=== PATIENT | female | born 1985 | race African-American/Black ===

== ENCOUNTER 2017-08-27 14:35 | Emergency (ER) | payer OTHER ==
[2017-08-27 15:39] LABS: Barbiturates NEGATIVE; Benzodiazepines NEGATIVE; Cocaine NEGATIVE; METHAMPHETAM NEGATIVE; Opiates NEGATIVE; Phencyclidine NEGATIVE; THC Cannibis NEGATIVE
[2017-08-27 15:40] LABS: Absolute Monocytes 0.8 K/uL (0.1-1.3); Absolute Neutrophil 4.4 K/uL (1.8-8.0); Basophils % 1.2 % (0-1.3); Eosinophils % 1.8 % (0-4.4); Hematocrit 36.1 % (36.0-45.0); Lymphocytes % 26.9 % (15.3-44.8); MCH 21.8 pg (27.0-35.0); MCV 68.5 fL (80-100); MPV 7.1 fL (7.6-11.3); Monocytes % 10.5 % (3.3-12.3); RBC Red Blood Cell Count 5.27 M/uL (3.86-4.86)
[2017-08-27 15:41] LABS: Bicarbonate 27 mEq/L (21-31); Glucose Level 80 mg/dL (65-120); Sodium Level 138 mEq/L (135-145)
[2017-08-27 15:43] LABS: Protime INR 1.03
[2017-08-27 15:46] LABS: ALT/SGPT 12 IU/L (10-60); AST/SGOT 14 IU/L (10-42); Albumin 4.4 g/dL (3.2-5.5); Alkaline Phosphatase 58 IU/L (42-121); BUN Blood Urea Nitrogen 14 mg/dL (6-20); Bilirubin Direct 0.1 mg/dL (0-0.2); Bilirubin Total 0.5 mg/dL (0.3-1.2); Protein, Total 7.8 g/dL (6.0-8.3)
[2017-08-27 15:48] LABS: Alcohol Serum/Plasma < 10 mg/dl; Salicylates Level < 4.0 mg/dl (<30)
[2017-08-27] MEDS ORDERED: ACETAMINOPHEN 500 MG TAB ONE (15:57)
--- NOTE | 2017-08-27 16:02 | ER ---
Nurse's Notes [facility] Name: Ruma Amin Age: 32 yrs Sex: Female : 1985 Arrival Date: 08/27/2017 Time: 14:42 Bed 6 Private MD: Diagnosis: Schizophrenia, unspecified Presentation: 08/27 14:49 Presenting complaint: Patient states: She has acceptance as [facility] in [facility], was instructed to come to ED to get clearance. Uses PCP, last time was >1 week ago. Denies SI/HI. Transition of care: patient was not received from another setting of care. Onset of symptoms was August 27, 2017. Care prior to arrival: None. 14:49 Method Of Arrival: Ambulatory hb 14:49 Acuity: BALDO 2 hb Historical: - Allergies: 14:54 Haldol; hb 14:54 Cipro; hb - Home Meds: 14:54 hydroxyzine HCl 50 mg Oral tab 1 tab three times a day [Active]; hb - PMHx: 14:54 MS; Migraines; hb 15:01 Anxiety; ss - Immunization history:: Adult Immunizations up to date. - Social history:: Smoking status: Patient uses tobacco products, smokes one-half pack cigarettes per day, Patient uses cousin reports patient uses PCP. Screenin:42 Abuse screen: Denies threats or abuse. Nutritional screening: No deficits noted. la1 Tuberculosis screening: No symptoms or risk factors identified. Fall Risk None identified. Assessment: 15:28 General: Appears well developed, well nourished, Behavior is agitated, anxious. Pain: la1 Denies pain. Neuro: Level of Consciousness is awake, alert, obeys commands, Oriented to person, place, time, situation. Cardiovascular: Capillary refill < 3 seconds Patient's skin is warm and dry. Respiratory: Airway is patent Respiratory effort is even, unlabored, Respiratory pattern is regular, symmetrical, Breath sounds are clear bilaterally. GI: No signs and/or symptoms were reported involving the gastrointestinal system. : No signs and/or symptoms were reported regarding the genitourinary system. Psych: 15:40 Subjective: Patient's mood is elevated, angry, Delusions are denied, Hallucinations are la1 visual, Having thoughts of pt denies thoughts of hurting herself r others. Objective: Patient is defensive, Speech is normal, Affect is appropriate. Interventions: Removed personal items and placed in bag. Patient placed in hospital gown. Suicide Risk Assessment: Sad Person Scale: Sex of patient: Female: Score 0 points. Age of patient: Score 1 point if patient 15-34. Depression: Score 1 point if signs of depression are present. Previous Attempt: Score 1 point if patient has previously attempted suicide. Substance Abuse: Score 1 point if patient abuses alcohol or drugs. Rational Thinking: Score 0 point if patient has rational thinking. Social Support: Score 0 if social support is present/available. Organized Plan: Score 0 if patient did not have an organized plan in place. Relationship: Score 0 point if patient has a spouse or domestic partner. Chronic Sickness: Score 0 point if patient does not have a chronic illness, debilitating, or severe disorder. TOTAL POINTS: If total points are 3-4, proposed clinical action is close follow-up/consider hospitalization. Safety Checks: Personal items have been removed. Door is open. Visitors are present. Patient uses sythetic. Commitment: Patient will be a voluntary commitment. Vital Signs: 14:49 BP 135 / 79; Pulse 84; Resp 16; Temp 98.7; Pulse Ox 100% on R/A; Pain 0/10; hb ED Course: 14:42 Patient arrived in ED. rg4 14:53 Triage completed. hb 14:54 Arm band placed on right wrist. hb 14:56 Diego Rma MD is Attending Physician. kdr 15:23 Epifanio Nolen, RN is Primary Nurse. la1 15:28 EKG done, by document management technician. reviewed by Diego Ram MD. at1 16:31 Patient has correct armband on for positive identification. Allergy band placed. Fall la1 risk band placed. 16:31 No provider procedures requiring assistance completed. Patient did not have IV access ss during this emergency room visit. Administered Medications: 15:41 Drug: Tylenol 1000 mg Route: PO; ss 16:31 Follow up: Response: No adverse reaction; Pain is decreased ss Outcome: 16:01 Discharge ordered by . kdr 16:31 Patient left the ED. la1 16:31 Discharged to home ambulatory, with family. ss 16:31 Condition: good 16:31 Discharge instructions given to patient, family, Instructed on discharge instructions, follow up and referral plans. Demonstrated understanding of instructions, follow-up care. Signatures: Diego Ram MD MD [facility] Sherita Alfaro RN RN ss Marina siu, slasher tender helper EKG Tat1 Epifanio Nolen RN RN la1 Suzanne Man RN RN Arleen Srivastava rg4 Corrections: (The following items were deleted from the chart) 14:55 14:49 Presenting complaint: Patient states: She has acceptance as [facility], was hb was instructed to come to ED to get clearance. Uses PCP. 15:00 14:49 Presenting complaint: Patient states: She has acceptance as [facility] in [facility], was instructed to come to ED to get clearance. Uses PCP.
--- NOTE | 2017-08-27 16:02 | EDPHYS ---
Physician Documentation [facility] Name: Ruma Amin Age: 32 yrs Sex: Female : 1985 Arrival Date: 08/27/2017 Time: 14:42 Bed 6 Private MD: ED Physician Diego Ram HPI: 08/27 18:27 This 32 yrs old Black Female presents to ER via Ambulatory with complaints of Psych kdr Problem. 18:27 The patient presents to the emergency department with anxiety, over unknown kdr circumstances, psychosis, has experienced visual hallucinations. Onset: The symptoms/episode began/occurred at an unknown time. Past psychiatric history: Prior diagnosis: schizophrenia, Psychiatric medications include: Primary psychiatric physician: the patient does not have a primary psychiatric physician. Associated signs and symptoms: The patient has no apparent associated signs or symptoms. Severity of symptoms: At their worst the symptoms were very mild mild. The patient has experienced similar episodes in the past, chronically. The patient has not recently seen a physician. The patient states that she was told to come to the ED to get evaluated and transferred to a psych facility. She is current not SI/HI. Historical: - Allergies: 14:54 Haldol; hb 14:54 Cipro; hb - Home Meds: 14:54 hydroxyzine HCl 50 mg Oral tab 1 tab three times a day [Active]; hb - PMHx: 14:54 MS; Migraines; hb 15:01 Anxiety; ss - Immunization history:: Adult Immunizations up to date. - Social history:: Smoking status: Patient uses tobacco products, smokes one-half pack cigarettes per day, Patient uses cousin reports patient uses PCP. ROS: 18:27 Constitutional: Negative for fever, chills, and weight loss, Eyes: Negative for injury, kdr pain, redness, and discharge, ENT: Negative for injury, pain, and discharge, Neck: Negative for injury, pain, and swelling, Cardiovascular: Negative for chest pain, palpitations, and edema, Respiratory: Negative for shortness of breath, cough, wheezing, and pleuritic chest pain, Abdomen/GI: Negative for abdominal pain, nausea, vomiting, diarrhea, and constipation, Back: Negative for injury and pain, : Negative for injury, bleeding, discharge, and swelling, MS/Extremity: Negative for injury and deformity, Skin: Negative for injury, rash, and discoloration, Neuro: Negative for headache, weakness, numbness, tingling, and seizure activity. Allergy/Immunology: Negative for hives, rash, and allergies, Endocrine: Negative for neck swelling, polydipsia, polyuria, polyphagia, and marked weight changes, Hematologic/Lymphatic: Negative for swollen nodes, abnormal bleeding, and unusual bruising. 18:27 Psych: Positive for anxiety, visual hallucinations, insomnia, Negative for drug dependence, alcohol dependence, auditory hallucinations, homicidal ideation, suicide gesture, suicidal ideation, acute changes. Exam: 18:27 Constitutional: This is a well developed, well nourished patient who is awake, alert, kdr and in no acute distress. Head/Face: Normocephalic, atraumatic. Eyes: Pupils equal round and reactive to light, extra-ocular motions intact. Lids and lashes normal. Conjunctiva and sclera are non-icteric and not injected. Cornea within normal limits. Periorbital areas with no swelling, redness, or edema. Neck: Trachea midline, no thyromegaly or masses palpated, and no cervical lymphadenopathy. Supple, full range of motion without nuchal rigidity, or vertebral point tenderness. No Meningismus. Chest/axilla: Normal chest wall appearance and motion. Nontender with no deformity. No lesions are appreciated. Cardiovascular: Regular rate and rhythm with a normal S1 and S2. No gallops, murmurs, or rubs. Normal PMI, no JVD. No pulse deficits. Respiratory: Lungs have equal breath sounds bilaterally, clear to auscultation and percussion. No rales, rhonchi or wheezes noted. No increased work of breathing, no retractions or nasal flaring. Abdomen/GI: Soft, non-tender, with normal bowel sounds. No distension or tympany. No guarding or rebound. No evidence of tenderness throughout. Back: No spinal tenderness. No costovertebral tenderness. Full range of motion. Skin: Warm, dry with normal turgor. Normal color with no rashes, no lesions, and no evidence of cellulitis. MS/ Extremity: Pulses equal, no cyanosis. Neurovascular intact. Full, normal range of motion. Neuro: Awake and alert, GCS 15, oriented to person, place, time, and situation. Cranial nerves II-XII grossly intact. Motor strength 5/5 in all extremities. Sensory grossly intact. Cerebellar exam normal. Normal gait. 18:27 Psych: Behavior/mood is pleasant, cooperative, Occasional fits but otherwise he was not making any threats to himself or others. Vital Signs: 14:49 BP 135 / 79; Pulse 84; Resp 16; Temp 98.7; Pulse Ox 100% on R/A; Pain 0/10; hb MDM: 16:01 Patient medically screened. [facility] 18:27 Data reviewed: vital signs, nurses notes, lab test result(s). [facility] 08/27 14:58 Order name: Acetaminophen [facility] 08/27 14:58 Order name: Basic Metabolic Panel kdr 08/27 14:58 Order name: CBC with Diff [facility] 08/27 14:58 Order name: ETOH Level [facility] 08/27 14:58 Order name: Hepatic Function [facility] 08/27 14:58 Order name: PT-INR [facility] 08/27 14:58 Order name: Ptt, Activated [facility] 08/27 14:58 Order name: Salicylate [facility] 08/27 14:58 Order name: Urine Drug Screen; Complete Time: 15:59 kdr 08/27 14:59 Order name: Acetaminophen Level; Complete Time: 15:59 EDMS 08/27 14:59 Order name: Basic Metabolic Panel; Complete Time: 15:59 EDMS 08/27 14:59 Order name: CBC with Automated Diff EDMS 08/27 14:59 Order name: Alcohol Serum/Plasma; Complete Time: 15:59 EDMS 08/27 14:59 Order name: Liver (Hepatic) Function; Complete Time: 15:59 EDMS 08/27 14:58 Order name: EKG; Complete Time: 14:59 kdr 08/27 14:58 Order name: EKG - Nurse/Tech; Complete Time: 15:23 kdr 08/27 14:58 Order name: IV Saline Lock; Complete Time: 15:23 kdr 08/27 14:58 Order name: Labs collected and sent; Complete Time: 15:23 kdr 08/27 14:58 Order name: Urine Dipstick-Ancillary (obtain specimen); Complete Time: 15:24 kdr 08/27 14:59 Order name: Protime (+INR); Complete Time: 15:59 EDMS 08/27 14:59 Order name: PTT, Activated Partial Thromb; Complete Time: 15:59 EDMS 08/27 14:59 Order name: Salicylates Level; Complete Time: 15:59 EDMS 08/27 15:58 Order name: Diet Regular; Complete Time: 15:58 ss 08/27 16:09 Order name: Urine Dipstick--Ancillary (enter results) ag 08/27 16:09 Order name: Urine --Ancillary (enter results) ag 08/27 16:09 Order name: Urine Dipstick-Ancillary EDMS 08/27 16:10 Order name: Urine --Ancillary EDMS Administered Medications: 15:41 Drug: Tylenol 1000 mg Route: PO; ss 16:31 Follow up: Response: No adverse reaction; Pain is decreased ss Disposition: 08/27/17 16:01 Discharged to Home. Impression: Schizophrenia, unspecified. - Condition is Stable. - Discharge Instructions: Altered Mental Status. - Medication Reconciliation Form, Thank You Letter form. - Follow up: Private Physician; When: 2 - 3 days; Reason: If symptoms return, Further diagnostic work-up, Recheck today's complaints, Continuance of care, Re-evaluation by your physician. - Problem is an ongoing problem. - Symptoms are unchanged. Signatures: Dispatcher [employer] EDIA Diego Ram MD MD [facility] Sherita Alfaro RN RN ss Epifanio Nolen RN RN la1 Suzanne Man RN RN
[2017-08-27 16:13] LABS: Urine Blood NEGATIVE (NEG); Urine Glucose NEGATIVE (NEG); Urine Protein NEGATIVE (NEG); Urine Specific Gravity 1.025 (1.005-1.030); Urine pH 5.5 (5.0-7.0)
[2017-08-27 18:03] LABS: Anisocytosis 1+; Blood Morphology Comment NOTED (NOT SEEN); Hypochromasia 1+; Platelet Estimate ADEQ; Urine White Blood Cell Casts OK
--- NOTE | 2017-08-29 12:53 | EKG ---
Test Date: 2017-08-27 Test Time: 15:21:45 Spiritual Care Coordinator: SOLIS MEASUREMENT RESULTS: Intervals: Rate: 80 PA: 152 QRSD: 90 QT: 364 QTc: 419 Anchor: P: 59 PA: 152 QRS: 75 T: 48 INTERPRETIVE STATEMENTS: Normal sinus rhythm Minimal voltage criteria for LVH, may be normal variant Borderline ECG No previous ECG available for comparison Electronically Signed On 08-29-17 12:52:11 CDT by Dimitri Miranda
== END 2017-08-27 16:31 | disposition home or self-care (01) ==
LOC: ER 14:35
DX: F20.9 Schizophrenia, unspecified (principal); F17.210 Nicotine dependence, cigarettes, uncomplicated; Z88.1 Allergy status to other antibiotic agents; Z88.5 Allergy status to narcotic agent
CPT/HCPCS: 36415; 80048; 80076; 80307; 80320; 80329; 81003; 81025; 85025; 85610; 85730; 93005; 99284

== ENCOUNTER 2019-12-26 20:03 | Emergency (ER) | payer OTHER ==
--- OUTSIDE RECORDS SUMMARY | 2019-12-26 20:05 | XMS REPORT | Continuity of Care Document ---
:1985 Author Organization [facility] t Address [address] [place] [address] Care Team Providers Name Role Phone Fredy Marques Attending Clinician Clinic, Neurology Continuity Attending Clinician UnavailAnthony Gutierrez MD Attending Clinician Doctor Unassigned, Name Attending Clinician Unavailable Problems This patient has no known problems. Allergies, Adverse Reactions, Alerts This patient has no known allergies or adverse reactions. Medications This patient has no known medications. Procedures This patient has no known procedures. Encounters Start End Encounter Admission Attending Care Care Encounter Source Date/Time Date/Time Type Type Clinicians Facility Department ID 2019-11-14 2019-11-14 ISIDRO Watts [id number] 00:00:00 00:00:00 (Out) Aldo OKEEFE [id number] [facility] [id number] 2019-09-13 2019-09-13 Letter [facility]ly [facility] [id number] 00:00:00 00:00:00 (Out) Neurology [facility] [id number] [facility] [id number] 2019-08-31 2019-08-31 Telephone BRI Roberts [id number] 00:00:00 00:00:00 Lauren Maguire [id number] [place] [id number] [place] [id number] [address] 2019-08-31 2019-08-31 Orders Doctor ISIDRO [id number] 00:00:00 00:00:00 Only Unassigned, SARY [id number] [place] [facility] [id number] 2019-08-01 2019-08-01 Orders Doctor ISIDRO [id number] 00:00:00 00:00:00 Only Unassigned, SARY [id number] Gardi [facility] [id number] 2019-02-10 2019-02-10 Telephone Latanya Roberts [id number] 00:00:00 00:00:00 Lauren Vasquez [id number] [place] [id number] Results This patient has no known results.
--- OUTSIDE RECORDS SUMMARY | 2019-12-26 20:05 | XMS REPORT | Summary of Care ---
:1985 Author Organization [facility] Address [address] [place] [id number] Care Team Providers Name Role Phone Anthony Roberts MD Primary Care Provider Encounter Details Date Type Department Care Team Description 11/14/2019 Letter (Out) [facility] Aldo Marques [address] [place], [place] [address] [place] [address] [place] [id number] Allergies Active Allergy Reactions Severity Noted Date Comments Ciprofloxacin Itching 08/23/2017 documented as of this encounter (statuses as of 11/14/2019) Medications No known medicationsdocumented as of this encounter (statuses as of 11/14/2019) Active Problems Problem Noted Date NSTEMI (non-ST elevated myocardial infarction) 019 Severe episode of recurrent major depressive disorder, without psychotic 03/08/2018 features Anxiety Schizoaffective disorder, depressive type Migraines documented as of this encounter (statuses as of 11/14/2019) Social History Tobacco Use Types Packs/Day Years Used Date Former Smoker Cigarettes 1 15 Started: 12/23 Smokeless Tobacco: Never Used Alcohol Use Drinks/Week oz/Week Comments Yes 1 drink a week Sex Assigned at Date Recorded Not on file Job Start Date Occupation Industry Not on file Not on file Not on file Travel History Travel Start Travel End No recent travel history available. documented as of this encounter Last Filed Vital Signs Not on filedocumented in this encounter Plan of Treatment Date Type Specialty Care Team Description 11/27/2019 Office Visit Neurology Giovanni Snell MD [address] [place] [id number] Health Maintenance Due Date Last Done Comments VARICELLA VACCINES (1 of 2 - 1986 2-dose childhood series) DTaP,Tdap,and Td Vaccines (1 - 1996 Tdap) Depression Screening 1997 PAP SMEAR 2006 INFLUENZA VACCINE (Season Ended) 2020 PNEUMOCOCCAL 0-64 YEARS COMBINED Aged Out No longer eligible based on SERIES patient's age to complete this topic documented as of this encounter Results Not on filedocumented in this encounter
[2019-12-26 20:56] LABS: Basophils % 1.1 % (0-1.3); Hematocrit 35.1 % (36.0-45.0); Lymphocytes % 37.2 % (15.3-44.8); MPV 7.7 fL (7.6-11.3)
[2019-12-26 21:11] LABS: Protime INR 0.96
[2019-12-26 21:18] LABS: Urine Blood NEGATIVE (NEG); Urine Glucose NEGATIVE (NEG); Urine Protein NEGATIVE (NEG); Urine pH 5.5 (5.0-7.0)
[2019-12-26 21:51] LABS: Barbiturates NEGATIVE (NEGATIVE); Benzodiazepines NEGATIVE (NEGATIVE); Cocaine NEGATIVE (NEGATIVE); METHAMPHETAM NEGATIVE (NEGATIVE); Methadone NEGATIVE (NEGATIVE); Opiates NEGATIVE (NEGATIVE); Phencyclidine NEGATIVE (NEGATIVE); THC Cannibis NEGATIVE (NEGATIVE)
[2019-12-26 21:52] LABS: Blood Morphology Comment NOT SEEN (NOT SEEN); Platelet Estimate ADEQ
[2019-12-26 21:54] LABS: ALT/SGPT 15 U/L (12-78); AST/SGOT 9 U/L (15-37); Albumin 3.7 g/dL (3.4-5.0); Alkaline Phosphatase 64 U/L (45-117); BUN Blood Urea Nitrogen 12 mg/dL (7-18); Bicarbonate 26 mmol/L (21-32); Bilirubin Direct < 0.1 mg/dL (0-0.2); Bilirubin Total 0.1 mg/dL (0.2-1.0); Glucose Level 83 mg/dL (74-106); Potassium 4.1 mmol/L (3.5-5.1); Protein, Total 7.5 g/dL (6.4-8.2); Sodium Level 139 mmol/L (136-145)
--- NOTE | 2019-12-26 22:31 | EDPHYS ---
Physician Documentation [facility] Name: Ruma Amin Age: 34 yrs Sex: Female : 1985 Arrival Date: 12/26/2019 Time: 20:05 Bed 16 Private MD: ED Physician Arnoldo [place] HPI: 12/25 20:36 This 34 yrs old Black Female presents to ER via Ambulatory with complaints of Mental pkl Health Crisis. 20:36 The patient presents to the emergency department with depression. Onset: The pkl symptoms/episode began/occurred 1 week(s) ago, and became worse today. Associated signs and symptoms: Pertinent positives; hallucinatios. Patient said she stopped taking Seroquel a month ago because it is making her worse. Historical: - Allergies: 20:10 Cipro; ll1 20:10 Haldol; ll1 - PMHx: 20:10 Anxiety; Migraines; MS; ll1 - Immunization history:: Flu vaccine is not up to date. - Social history:: Smoking status: Patient reports the use of cigarette tobacco products, smokes one-half pack cigarettes per day, Patient uses alcohol, only on a social basis. Patient/guardian denies using street drugs. ROS: 20:36 Eyes: Negative for injury, pain, redness, and discharge, ENT: Negative for injury, pkl pain, and discharge, Neck: Negative for injury, pain, and swelling, Cardiovascular: Negative for chest pain, palpitations, and edema, Respiratory: Negative for shortness of breath, cough, wheezing, and pleuritic chest pain, Abdomen/GI: Negative for abdominal pain, nausea, vomiting, diarrhea, and constipation, Back: Negative for injury and pain, : Negative for injury, bleeding, discharge, and swelling, MS/Extremity: Negative for injury and deformity, Skin: Negative for injury, rash, and discoloration, Neuro: Negative for headache, weakness, numbness, tingling, and seizure. 20:36 Psych: Positive for depression, auditory hallucinations, visual hallucinations. Exam: 20:36 Head/Face: Normocephalic, atraumatic. Eyes: Pupils equal round and reactive to light, pkl extra-ocular motions intact. Lids and lashes normal. Conjunctiva and sclera are non-icteric and not injected. Cornea within normal limits. Periorbital areas with no swelling, redness, or edema. ENT: Nares patent. No nasal discharge, no septal abnormalities noted. Tympanic membranes are normal and external auditory canals are clear. Oropharynx with no redness, swelling, or masses, exudates, or evidence of obstruction, uvula midline. Mucous membranes moist. Neck: Trachea midline, no thyromegaly or masses palpated, and no cervical lymphadenopathy. Supple, full range of motion without nuchal rigidity, or vertebral point tenderness. No Meningismus. Chest/axilla: Normal chest wall appearance and motion. Nontender with no deformity. No lesions are appreciated. Cardiovascular: Regular rate and rhythm with a normal S1 and S2. No gallops, murmurs, or rubs. Normal PMI, no JVD. No pulse deficits. Respiratory: Lungs have equal breath sounds bilaterally, clear to auscultation and percussion. No rales, rhonchi or wheezes noted. No increased work of breathing, no retractions or nasal flaring. Abdomen/GI: Soft, non-tender, with normal bowel sounds. No distension or tympany. No guarding or rebound. No evidence of tenderness throughout. Back: No spinal tenderness. No costovertebral tenderness. Full range of motion. Skin: Warm, dry with normal turgor. Normal color with no rashes, no lesions, and no evidence of cellulitis. MS/ Extremity: Pulses equal, no cyanosis. Neurovascular intact. Full, normal range of motion. Neuro: Awake and alert, GCS 15, oriented to person, place, time, and situation. Cranial nerves II-XII grossly intact. Motor strength 5/5 in all extremities. Sensory grossly intact. Cerebellar exam normal. Normal gait. 20:36 Psych: Behavior/mood is cooperative, Affect is calm, Patient has no thoughts/intents to harm self or others. Delusions/hallucinations are present and described as Patient said she is hearing voices and seeing things that are trying to harm her. Vital Signs: 20:10 BP 118 / 84; Pulse 86; Resp 17; Temp 97.2; Pulse Ox 100% ; Pain 0/10; ll1 22:00 BP 115 / 79; Pulse 78; Resp 16; Pulse Ox 100% on R/A; Pain 2/10; jb4 MDM: 20:23 Patient medically screened. pkl 22:25 Data reviewed: vital signs, nurses notes, lab test result(s), EKG. ED course: Patient charis said she is feeling better. Does not want to wait for [facility] screener for evaluation. Advised to contact [facility] in the morning for evaluation. Patient understood instructions. 12/25 20:34 Order name: Acetaminophen; Complete Time: 22:35 pkl 12/25 20:34 Order name: Basic Metabolic Panel; Complete Time: 22:35 pkl 12/25 20:34 Order name: CBC with Diff; Complete Time: 22:35 pkl 12/25 20:34 Order name: ETOH Level; Complete Time: 21:39 pkl 12/25 20:34 Order name: Hepatic Function; Complete Time: 22:35 pkl 12/25 20:34 Order name: PT-INR; Complete Time: 21:39 pkl 12/25 20:34 Order name: Ptt, Activated; Complete Time: 21:39 pkl 12/25 20:34 Order name: Salicylate; Complete Time: 22:35 pkl 12/25 20:34 Order name: Urine Drug Screen; Complete Time: 22:35 pkl 12/25 20:34 Order name: EKG; Complete Time: 20:35 pkl 12/25 20:34 Order name: EKG - Nurse/Tech; Complete Time: 21:09 pkl 12/25 21:13 Order name: Urine --Ancillary (enter results); Complete Time: 21:39 tt3 12/25 21:16 Order name: Urine Dipstick--Ancillary (enter results); Complete Time: 21:39 tt3 12/25 21:51 Order name: Manual Differential; Complete Time: 22:35 EDMS 12/25 20:34 Order name: IV Saline Lock; Complete Time: 21:09 pkl 12/25 20:34 Order name: Labs collected and sent; Complete Time: 21:09 pkl 12/25 20:34 Order name: Urine Dipstick-Ancillary (obtain specimen); Complete Time: 21:09 pkl Administered Medications: No medications were administered Disposition: 12/26/19 22:32 Patient has left against medical advice. - Patients states they are going to Home. - Condition is Stable. Follow up: Private Physician; When: Tomorrow; Reason: Re-evaluation by your physician. - Problem is new. - Symptoms have improved. Signatures: Dispatcher [employer] EDArnoldo Coulter MD MD pkl Gus Hollingsworth RN RN jb4 Lorin Falcon RN RN ll1 Corrections: (The following items were deleted from the chart) 22:31 22:29 12/26/2019 22:29 Discharged to Home. Impression: Depression. Condition is Stable. pkl Forms are Medication Reconciliation Form, Thank You Letter, Antibiotic Education, Prescription Opioid Use. Follow up: Private Physician; When: Tomorrow; Reason: Re-evaluation by your physician. Problem is new. Symptoms have improved. pkl 22:37 22:32 12/26/2019 22:32 Patients has left against medical advice. Patient states they jb4 are going to Home. Condition is Stable. Follow up: Private Physician; When: Tomorrow; Reason: Re-evaluation by your physician. Problem is new. Symptoms have improved. pkl
--- NOTE | 2019-12-26 22:31 | ER ---
Nurse's Notes [facility] Name: Ruma Amin Age: 34 yrs Sex: Female : 1985 Arrival Date: 12/26/2019 Time: 20:05 Bed 16 Private MD: Diagnosis: Presentation: 12/25 20:10 Chief complaint: Patient states: Anxiety and depression is worse than usual lately. ll1 Stopped taking meds about 1 month ago. Denies SI. Coronavirus screen: Patient denies a cough. Patient denies shortness of breath or difficulty breathing. Patient denies measured and/or subjective temperature greater than 100.4F prior to today's visit. Patient denies travel on a cruise ship or to a country the [facility] currently lists as an affected area. Patient denies contact with known and/or suspected case of COVID-19. Proceed with normal triage. Ebola Screen: Patient denies travel to an Ebola-affected area in the 21 days before illness onset. Initial Sepsis Screen: Does the patient meet any 2 criteria? No. Patient's initial sepsis screen is negative. Risk Assessment: Do you want to hurt yourself or someone else? Patient reports no desire to harm self or others. Onset of symptoms was December 26, 2019. 20:10 Method Of Arrival: Ambulatory ll1 20:10 Acuity: BALDO 2 ll1 Historical: - Allergies: 20:10 Cipro; ll1 20:10 Haldol; ll1 - PMHx: 20:10 Anxiety; Migraines; MS; ll1 - Immunization history:: Flu vaccine is not up to date. - Social history:: Smoking status: Patient reports the use of cigarette tobacco products, smokes one-half pack cigarettes per day, Patient uses alcohol, only on a social basis. Patient/guardian denies using street drugs. Screenin:30 Abuse screen: Denies threats or abuse. Nutritional screening: No deficits noted. jb4 Tuberculosis screening: No symptoms or risk factors identified. Fall Risk None identified. Assessment: 20:30 General: Appears in no apparent distress. uncomfortable, Behavior is calm, cooperative, jb4 anxious, quiet, PT reports visual and auditory hallucinations. Denies that hallucinations are telling her to commit suicide or hommice. Pt states " I am not suicidal or homicidal, but the hallucinations make me want to kill myself because I want them to go away.". Pain: Complains of pain in low back area Pain does not radiate. Pain currently is 2 out of 10 on a pain scale. Neuro: Level of Consciousness is awake, alert, obeys commands, Oriented to person, place, time, situation. Cardiovascular: Patient's skin is warm and dry. Respiratory: Airway is patent Respiratory effort is even, unlabored, Respiratory pattern is regular, symmetrical. GI: No signs and/or symptoms were reported involving the gastrointestinal system. : No signs and/or symptoms were reported regarding the genitourinary system. EENT: No signs and/or symptoms were reported regarding the EENT system. Derm: Skin is intact, Skin is dry, Skin is normal, Skin temperature is warm. Musculoskeletal: Circulation, motion, and sensation intact. Range of motion: intact in all extremities. 21:30 Reassessment: Patient appears in no apparent distress at this time. Patient and/or 4 family updated on plan of care and expected duration. Pain level reassessed. Patient is alert, oriented x 3, equal unlabored respirations, skin warm/dry/pink. 22:28 Reassessment: Patient appears in no apparent distress at this time. Patient and/or jb4 family updated on plan of care and expected duration. Pain level reassessed. Patient is alert, oriented x 3, equal unlabored respirations, skin warm/dry/pink. PT states "I want to go home." asked pt if there was a problem or if there was something she needed. Pt states "I would just feel more comfortable at home. I think that I am just overwhelmed and anxious and I just want to go home." Provider notified. 22:32 Reassessment: Provider at the bedside explaining need for patient to follow up with anup [facility]. Pt verbalized understanding. Denies suicidal ideations and homicidal ideations. Signed AMA form and was given phone number for [facility]. Vital Signs: 20:10 BP 118 / 84; Pulse 86; Resp 17; Temp 97.2; Pulse Ox 100% ; Pain 0/10; ll1 22:00 BP 115 / 79; Pulse 78; Resp 16; Pulse Ox 100% on R/A; Pain 2/10; 4 ED Course: 20:05 Patient arrived in ED. bp1 20:11 Triage completed. ll1 20:11 Arm band placed on Patient placed in an exam room, on a stretcher. ll1 20:23 Arnoldo Montana MD is Attending Physician. pkl 20:27 Gus Hollingsworth, RN is Primary Nurse. jb4 20:30 Patient has correct armband on for positive identification. Placed in gown. Bed in low jb4 position. Call light in reach. Side rails up X 1. Pulse ox on. NIBP on. 20:45 No provider procedures requiring assistance completed. Initial lab(s) drawn, by sd, anup sent to lab. Inserted saline lock: 20 gauge in left antecubital area, using aseptic technique. Blood collected. 21:41 [facility] contacted and spoke with Dr. Montana regarding a screening for pt. tt3 22:30 IV discontinued, intact, bleeding controlled, No redness/swelling at site. Pressure jb4 dressing applied. Administered Medications: No medications were administered Outcome: 22:29 Discharge ordered by . charis 22:32 AMA AMA form signed jb4 22:32 Condition: stable 22:32 Instructed on follow up and referral plans. Demonstrated understanding of instructions. 22:37 Patient left the ED. jb4 Signatures: Arnoldo Montana MD MD pkl Bryson, James, RN RN jb4 Lorin Falcon RN RN ll1 She Pate Tyler tt3
[2019-12-26 22:45] VITALS: TEMP 97.2; O2SAT 100
[2019-12-26 22:47] VITALS: BP 115/79
--- NOTE | 2019-12-28 07:35 | EKG ---
Test Date: 2019-12-26 Test Time: 21:04:20 [employer] Director: ALISON MEASUREMENT RESULTS: Intervals: Rate: 73 CA: 196 QRSD: 94 QT: 384 QTc: 423 [place]: P: 38 CA: 196 QRS: 63 T: 30 INTERPRETIVE STATEMENTS: Normal sinus rhythm Normal ECG Compared to ECG 08/27/2017 15:21:45 Left ventricular hypertrophy no longer present Electronically Signed On 12-28-19 07:32:43 CDT by Adrian Beckford
== END 2019-12-26 22:37 | disposition left against medical advice (07) ==
LOC: ER 20:03
DX: F32.9 Major depressive disorder, single episode, unspecified (principal); R44.0 Auditory hallucinations; R44.1 Visual hallucinations; F17.210 Nicotine dependence, cigarettes, uncomplicated; Z88.1 Allergy status to other antibiotic agents; Z88.5 Allergy status to narcotic agent
CPT/HCPCS: 36415; 80048; 80076; 80307; 80320; 80329; 81003; 81025; 85025; 85610; 85730; 93005; 99283